=== PATIENT | female | born 1995 | race Caucasian/White ===

== ENCOUNTER 2017-07-26 01:13 | Outpatient (CLI) | payer MEDICAID ==
[2017-07-26 01:59] LABS: APPEARANCE,URINE CLEAR; BILIRUBIN,URINE NEGATIVE (NEGATIVE); GLUCOSE, URINE NEGATIVE (NEGATIVE); KETONES,URINE NEGATIVE (NEGATIVE); LEUKOCYTE ESTERASE,URINE TRACE (NEGATIVE); NITRITE,URINE NEGATIVE (NEGATIVE); PROTEIN,URINE NEGATIVE (NEGATIVE); URINE SPECIFIC GRAVITY 1.009; UROBILINOGEN,URINE NEGATIVE mg/dL (<2.0)
--- NOTE | 2017-07-26 02:27 | Non Stress Test Report ---
Non Stress Test Datetime Report Generated by CPN: 07/26/2017 02:27 DEMOGRAPHIC EGA NST: 40.2 INDICATION Indication for Study: Ordered by Provider; Other Indication for Study (NST) Other: LC URINE RESULTS Urine Protein, NST: Negative Urine Ketones - NST: Negative Urine Glucose - NST: Negative Urine Blood - NST: Negative MONITORING Monitor Explained: Monitor Explained; Test Explained; Patient Verbalized Understanding Time on Monitor: 07/26/2017 01:32 Time off Monitor: 07/26/2017 02:10 NST Duration: 38 NST INTERVENTIONS NST Interventions: Reposition Patient Physician Notified NST: Dr Anderson-Juan BABY A: [id number] BABY A Movement : Present Contraction Frequency : 5-9 FHR Baseline : 140 Accelerations : 15X15 Decelerations : None Variability : Moderate 6-25bpm NST Review: Meets Criteria for Reactive NST NST Review and Verified By : Jazmin Vazquez RN Results: Reactive NST REPORT Report Trigger: Send Report
[2017-07-26 02:58] LABS: URINE BARBITURATES SCREEN NEGATIVE; URINE METHADONE SCREEN NEGATIVE; URINE OPIATES LOW NEGATIVE; URINE PHENCYCLIDINE SCREEN NEGATIVE
== END 2017-07-26 02:17 | disposition home or self-care (01) ==
LOC: LC 01:13
PROVIDERS: ATTEND Obstetrics & Gynecology
PROC: 4A1HXCZ Monitoring of Products of Conception, Cardiac Rate, External Approach (ICD-10-PCS; principal; 2017-07-26)
DX: O47.1 False labor at or after 37 completed weeks of gestation (principal); Z3A.40 40 weeks gestation of pregnancy
CPT/HCPCS: 59025; 80307; 81005

== ENCOUNTER 2017-07-27 23:18 | Outpatient (CLI) | payer MEDICAID ==
[2017-07-27 23:53] LABS: APPEARANCE,URINE CLEAR; BILIRUBIN,URINE NEGATIVE (NEGATIVE); GLUCOSE, URINE NEGATIVE (NEGATIVE); KETONES,URINE NEGATIVE (NEGATIVE); LEUKOCYTE ESTERASE,URINE NEGATIVE (NEGATIVE); NITRITE,URINE NEGATIVE (NEGATIVE); PROTEIN,URINE NEGATIVE (NEGATIVE); URINE SPECIFIC GRAVITY 1.006; UROBILINOGEN,URINE NEGATIVE mg/dL (<2.0)
[2017-07-28 00:22] LABS: URINE BARBITURATES SCREEN NEGATIVE; URINE METHADONE SCREEN NEGATIVE; URINE OPIATES LOW NEGATIVE; URINE PHENCYCLIDINE SCREEN NEGATIVE
[2017-07-28] MEDS ORDERED: HYDROXYZINE PAMOATE 50 MG CAPSULE PO ONE (01:28)
[2017-07-28] MEDS ORDERED: HYDROXYZINE PAMOATE 50 MG CAPSULE ONE (01:30)
--- NOTE | 2017-07-28 01:51 | Non Stress Test Report ---
Non Stress Test Datetime Report Generated by CPN: 07/28/2017 01:51 DEMOGRAPHIC EGA NST: 40.3 INDICATION Indication for Study: Ordered by Provider VITAL SIGNS Temperature - NST: 98.2 Pulse - NST: 80 RESP - NST: 15 NBPSYS NST: 119 NBPDIA NST: 59 MONITORING Monitor Explained: Monitor Explained; Test Explained; Patient Verbalized Understanding Time on Monitor: 07/27/2017 23:43 Time off Monitor: 07/28/2017 00:17 NST Duration: 34 NST INTERVENTIONS NST Interventions: PO Hydration Physician Notified NST: Dr Alejo BABY A: [id number] BABY A Movement : Present Contraction Frequency : none FHR Baseline : 130 Accelerations : 15X15 Decelerations : None Variability : Moderate 6-25bpm NST Review: Meets Criteria for Reactive NST NST Review and Verified By : Laurel Scott RN NST Results: Reactive NST REPORT Report Trigger: Send Report
== END 2017-07-28 01:40 | disposition home or self-care (01) ==
LOC: LC 23:18
PROVIDERS: ATTEND Student in an Organized Health Care Education/Training Program
DX: O47.1 False labor at or after 37 completed weeks of gestation (principal); Z3A.40 40 weeks gestation of pregnancy
CPT/HCPCS: 59025; 81005; 80307; J3490

== ENCOUNTER 2017-07-28 10:21 | Outpatient (CLI) | payer MEDICAID ==
[2017-07-28 11:07] LABS: APPEARANCE,URINE SLIGHTLY-CLOUDY; BILIRUBIN,URINE NEGATIVE (NEGATIVE); GLUCOSE, URINE NEGATIVE (NEGATIVE); KETONES,URINE TRACE mg/dL (NEGATIVE); LEUKOCYTE ESTERASE,URINE TRACE (NEGATIVE); NITRITE,URINE NEGATIVE (NEGATIVE); PROTEIN,URINE NEGATIVE (NEGATIVE); URINE SPECIFIC GRAVITY 1.014; UROBILINOGEN,URINE NEGATIVE mg/dL (<2.0)
[2017-07-28 11:27] LABS: URINE BARBITURATES SCREEN NEGATIVE; URINE METHADONE SCREEN NEGATIVE; URINE OPIATES LOW NEGATIVE; URINE PHENCYCLIDINE SCREEN NEGATIVE
[2017-07-28] MEDS ORDERED: HYDROXYZINE PAMOATE 50 MG CAPSULE ONE (11:35)
[2017-07-28] MEDS ORDERED: ACETAMINOPHEN 325 MG TABLET ONE (11:35)
[2017-07-28] MEDS ORDERED: PROMETHAZINE HCL INJ 25 MG/1 ML VIAL IV ONE (21:06)
[2017-07-28] MEDS ORDERED: NALBUPHINE HCL INJ 10 MG/1 ML AMPULE INJ ONE (21:08)
== END 2017-07-28 11:45 | disposition home or self-care (01) ==
LOC: LC 10:21
PROVIDERS: ATTEND Obstetrics & Gynecology
DX: O47.1 False labor at or after 37 completed weeks of gestation (principal); Z3A.40 40 weeks gestation of pregnancy
CPT/HCPCS: 81005; 80307; J3490 ×2

== ENCOUNTER 2017-07-28 18:15 | Inpatient (IN) | payer MEDICAID ==
[2017-07-28] MEDS ORDERED: PENICILLIN G POTASSIUM 5,000,000 UNIT in DEXTROSE 5%-WATER 100 ML IV ONE (20:04)
[2017-07-28] MEDS ORDERED: RINGERS SOLUTION,LACTATED 1,000 ML IV ONE (20:04)
[2017-07-28 20:45] LABS: ABSOLUTE BASOPHILS # (AUTO) 0.1 10^3/uL (0.0-0.2); ABSOLUTE LYMPHOCYTES (AUTO) 1.9 10^3/uL (0.5-4.7); ABSOLUTE MONOCYTES (AUTO) 0.9 10^3/uL (0.1-1.4); ABSOLUTE NEUT (AUTO) 11.7 10^3/uL (1.7-8.2); BASOPHILS % (AUTO) 0.6 % (0-2); EOSINOPHILS % (AUTO) 0.1 % (0-6); HEMATOCRIT 38.2 % (36.0-47.0); HEMOGLOBIN 12.8 g/dL (12.0-15.5); HGB HCT DIFFERENCE 0.2; LYMPHOCYTES % (AUTO) 12.8 % (13-45); MEAN CORPUSCULAR HEMOGLOBIN 26.3 pg (27.0-33.4); MEAN CORPUSCULAR HGB CONC 33.5 g/dL (32.0-36.0); MEAN CORPUSCULAR VOLUME 78 fl (80-97); MONOCYTES % (AUTO) 6.3 % (3-13); RED BLOOD COUNT 4.88 10^6/uL (3.72-5.28); RED CELL DISTRIBUTION WIDTH 15.5 % (11.5-14.0); SEGMENTED NEUTROPHILS % (AUTO) 80.2 % (42-78); WHITE BLOOD COUNT 14.6 10^3/uL (4.0-10.5)
[2017-07-28] MEDS ORDERED: PROMETHAZINE HCL INJ 25 MG/1 ML VIAL ONE (21:09)
[2017-07-28] MEDS ORDERED: NALBUPHINE HCL INJ 10 MG/1 ML AMPULE ONE (21:10)
[2017-07-29] MEDS ORDERED: PENICILLIN G-K 5 MILLION UNIT VIAL ONE ×3 (01:18→09:13)
[2017-07-29] MEDS ORDERED: EPHEDRINE SULFATE INJ 50 MG/1 ML AMPULE ONE (02:11)
[2017-07-29] MEDS ORDERED: FENTANYL/BUPIVACAINE/NS/PF 200 MCG/100 ML RTUINJ EPI ONE (02:12)
[2017-07-29] MEDS ORDERED: BUPIVACAINE HCL 0.25 % INJ/PF (2.5 MG/1 ML) 30 ML VIAL ONE (02:12)
[2017-07-29] MEDS ORDERED: OXYTOCIN/NORMAL SALINE 20 UNIT/1,000 ML RTUINJ ONE (02:13)
[2017-07-29] MEDS ORDERED: LIDOCAINE 1% INJ-PF (10 MG/ML) 30 ML SDV ONE (02:13)
[2017-07-29] MEDS ORDERED: MISOPROSTOL 0.2 MG TABLET ONE (02:13)
[2017-07-29] MEDS ORDERED: DEXTROSE 5%-LACTATED RINGERS 1,000 ML IV PRN (03:53)
[2017-07-29] MEDS: PENICILLIN G POTASSIUM 2,500,000 UNIT in DEXTROSE 5%-WATER 50 ML IV SCH ×2 (05:36→09:18)
[2017-07-29] MEDS ORDERED: DIPH/PERTUSS(ACELL)/TETANUS VAC/PF 0.5 ML SYR (>=10YO) IM PRN (13:22)
[2017-07-29] MEDS ORDERED: MEASLES,MUMPS&RUBELLA VACC/PF 0.5 ML VIAL SUBCUT PRN (13:22)
[2017-07-29] MEDS ORDERED: OXYTOCIN/NORMAL SALINE 20 UNIT/1,000 ML RTUINJ IV PRN (13:22)
[2017-07-29] MEDS ORDERED: ZOLPIDEM TARTRATE 5 MG TABLET PO PRN (13:22)
[2017-07-29] MEDS ORDERED: DIBUCAINE 1% OINTMENT 28 GM TP PRN (13:22)
[2017-07-29] MEDS ORDERED: BENZOCAINE/MENTHOL AEROSOL SPRAY 56 ML TOP PRN (13:22)
--- NOTE | 2017-07-29 13:41 | Delivery Summary ---
Del Sum A-C Datetime Report Generated by CPN: 07/29/2017 13:41 DELIVERY PERSONNEL DELIVERY PERSONNEL: [id number] Delivery Doctor:: Magaly Ross CNM Nurse Hot Saw Helper Certified:: Magaly Ross CNM Labor and Delivery Nurse:: Valentina Gardner RN Labor and Delivery Nurse:: MILLER Rocha Nursery Nurse:: Will Case/JT: Khushboo Merrill, ST MATERNAL INFORMATION Delivery Anesthesia: Local; Epidural Medications After Delivery: Pitocin Bolus-Please Comment Meds After Delivery Comment: Pitocin 20 units in 1000 ml NS open for bolus Estimated Blood Loss (ml): 250 Maternal Complications: None Provider Comments: SVDVF over 2*perineal lac and 1* periurethral lacs, delivered through nuchal cord, infant vigorous after stimulation. Cord clamped x 2 cut per FOB, cord blood collected. Placenta instact, spont via sawyer. Lacerations repaired, skin to skin with mother. Apgars 7,9. EBL 250. Mother and stable. LABOR SUMMARY EDC: 07/24/2017 00:00 No. Babies in Womb: 1 Attempted: No Labor Anesthesia: Epidural LABOR INFORMATION Reason for Induction: Not Applicable Onset of Labor: 07/29/2017 01:16 Complete Dilatation: 07/29/2017 10:48 Oxytocin: Augmentation Group B Beta Strep: Positive Antibiotics # of Doses: 3 Antibiotics Time of Last Dose: 918 Name of Antibiotic Given: PCN Steroids Given: None Reason Steroids Not Administered: Not Applicable MEMBRANES Membranes Rupture Method: Spontaneous Rupture of Membranes: 07/29/2017 07:45 Length of Rupture (hr): 3.38 Amniotic Fluid Color: Clear Amniotic Fluid Amount: Scant Amniotic Fluid Odor: Normal STAGES OF LABOR Stage 1 hr: 9 Stage 1 min: 32 Stage 2 hr: 0 Stage 2 min: 20 Stage 3 hr: 0 Stage 3 min: 9 Total Time in Labor hr: 10 Total Time in Labor min: 1 VAGINAL DELIVERY Laceration #1: Perineal Laceration Extension #1: Second Degree Laceration #2: Periurethral Laceration Extension #2: First Degree Laceration Repair: Yes Laceration Repair Note: repaired with chromic suture, lidocaine and epidrual Sponge Count Correct: N/A CSECTION DELIVERY Primary Indication: N/A Secondary Indication: N/A CSection Incidence: N/A Labor: N/A Elective: N/A CSection Incision: N/A BABY A INFORMATION Infant Delivery Date/Time: 07/29/2017 11:08 Method of Delivery: Vaginal Born in Route : No : N/A Forceps: N/A Vacuum Extraction: N/A Shoulder Dystocia : No PRESENTATION/POSITION BABY A Presentation: Cephalic Cephalic Presentation: Vertex Vertex Position: Right Occipital Anterior Breech Presentation: N/A PLACENTA INFORMATION BABY A Placenta Delivery Time : 07/29/2017 11:17 Placenta Method of Delivery: Spontaneous Placenta Status: Delivered SCORES BABY A Heart Rate 1 min: >100 bpm Resp Effort 1 min: Slow, Irregular Reflex Irritability 1 min: Cough or Sneeze or Pulls Away Muscle Tone 1 min: Active Motion Color 1 min: Blue/Pale Resuscitation Effort 1 min: Tactile Stimulation SCORE 1 MIN: 7 Heart Rate 5 min: >100 bpm Resp Effort 5 min: Good Cry Reflex Irritability 5 min: Cough or Sneeze or Pulls Away Muscle Tone 5 min: Active Motion Color 5 min: Body [place], Extremities Blue Resuscitation Effort 5 min: N/A SCORE 5 MIN: 9 Resuscitation Effort 10 min: N/A INFORMATION BABY A Gestational Age at Delivery: 40.5 Gestational Status: Full Term- 39- 40.6 Weeks Infant Outcome : Liveborn Condition : Stable Infant Sex: Female IDENTIFICATION BABY A Infant Verification Date/Time: 07/29/2017 11:35 ID Band Number: [id number] Mother's Name Verified: Yes RN Verifying Infant: CEulalia Kendra, RN/ Ovi Roberts RN WEIGHT/LENGTH BABY A Infant Birthweight (gm): 3560 Weight (lb): 7 Weight (oz): 14 Length (in): 20.50 Length (cm): 52.07 CORD INFORMATION BABY A No. Cord Vessels: 3 Nuchal Cord : Around Neck x1, Loose Cord Blood Taken: Yes-For Eval (Mom's Blood Type - or O+) Infant Suction: None ASSESSMENT BABY A Physical Findings at Delivery: Within Normal Limits Skin to Skin: Yes Transferred To: Remains with Mother BABY B INFORMATION : N/A SIGNATURES Assignment: Ethel Roberts MD Signature: with User ID: [email or web address] : with User ID: [email or web address]
--- NOTE | 2017-07-29 13:47 | Admission Physical ---
Datetime Report Generated by CPN: 07/29/2017 13:47 CURRENT ADMISSION Chief Complaint: Uterine Contractions Indication for Induction: Not Applicable Indication for Induction: Term, Intrauterine ; Active Labor; Intact Membranes Admit Plan: Admit to Unit ALLERGIES Medication Allergies: No Medication Allergies: No Known Allergies (07/28/2017) Medication Allergies: No Known Allergies (07/12/2017) Latex: No Latex Allergies Food Allergies: no Environmental Allergies: no OBSTETRICAL HISTORY EDC: 07/24/2017 00:00 : 1 Para: 0 Term: 0 : 0 SAB: 0 IAB: 0 Ectopic: 0 Livin Cesareans: 0 VBACs: 0 Multiple Births: 0 Gestational Diabetes: No Rh Sensitization: No Incompetent Cervix: No WILLIAM: No Infertility: No ART Treatment: No Uterine Anomaly: No IUGR: No Hx Previous C/S: No Macrosomia: No Hx Loss/Stillborn: No PIH: No Hx : No Placenta Previa/Abruption: No Depression/PP Depression: No PTL/PROM: No Post Hemorrhage: No Current Procedures: Ultrasound Obstetrical History Comments: G1: current SEE RECORDS Alcohol: No Marijuana : No Cocaine: No Other Illicit Drugs: No Cigarettes: Former Smoker. 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 Surgery: No Heart Disease: No Hosp/Surgery: Yes Autoimmune Disorder: No Anesthetic Complications: No Kidney Disease: Yes Abnormal Pap Smear: No Neuro/Epilepsy: No Psychiatric Disorders: No Other Medical Diseases: No Hepatitis/Liver Disease: No Significant Family History: No Varicosities/Phlebitis: No Trauma/Violence : No Thyroid Dysfunction: No Medical History Comments: uti before /surgery left ankle/ INFECTIOUS HISTORY Gonorrhea: No Genital Herpes: No Chlamydia: No Tuberculosis: No Syphilis: No Hepatitis: No HIV/AIDS Exposure: No Rash or Viral Illness: No HPV: No PHYSICAL EXAM General: Normal HEENT: Normal Neurologic: Normal Thyroid: Normal Heart: Normal Lungs: Normal Breast: Deferred Back: Normal Abdomen: Normal Genitourinary Exam: Normal Extremities: Normal DTRs: Normal Pelvic Type: Adequate Vital Signs: Reviewed VAGINAL EXAM Dilatation: 4 Effacement: 80 Station: -2 MEMBRANES Membranes: Ruptured FETUS A EGA: 40.4 Monitoring: External US FHR- Baseline: 130 Variability: Moderate 6-25bpm Accelerations: 15X15 Decelerations: None Presentation: Vertex Admit Comment: efw is 8-9 lbs PLANS FOR LABOR AND DELIVERY Labor and Delivery: None Pain Management: Natural Feeding Preference: Formula Benefit of Breast Feed Discussed: Yes Circumcision: N/A INFORMED CONSENT Signature: with User ID: [email or web address]
[2017-07-29] MEDS: IBUPROFEN 800 MG TABLET PO SCH ×2 (14:17→21:49)
[2017-07-29] MEDS: DOCUSATE SODIUM 100 MG CAPSULE PO SCH (18:45)
[2017-07-29] MEDS: FERROUS SULFATE 325 MG TABLET PO SCH (18:45)
[2017-07-30] MEDS: IBUPROFEN 800 MG TABLET PO SCH ×3 (06:10→21:21)
[2017-07-30 07:21] LABS: HEMATOCRIT 34.7 % (36.0-47.0); HEMOGLOBIN 11.4 g/dL (12.0-15.5); HGB HCT DIFFERENCE -0.5; MEAN CORPUSCULAR HEMOGLOBIN 26.1 pg (27.0-33.4); MEAN CORPUSCULAR HGB CONC 32.8 g/dL (32.0-36.0); MEAN CORPUSCULAR VOLUME 79 fl (80-97); RED BLOOD COUNT 4.36 10^6/uL (3.72-5.28); RED CELL DISTRIBUTION WIDTH 15.9 % (11.5-14.0); WHITE BLOOD COUNT 14.6 10^3/uL (4.0-10.5)
[2017-07-30] MEDS ORDERED: INFLUENZA ADLT QUAD (36MOS+) 2017-18 VAC 0.5 ML SYR IM PRN (09:13)
[2017-07-30] MEDS: FERROUS SULFATE 325 MG TABLET PO SCH ×2 (09:17→17:46)
[2017-07-30] MEDS: SENNOSIDES/DOCUSATE 8.6-50 MG 1 EACH TABLET PO SCH (09:18)
[2017-07-30] MEDS: DOCUSATE SODIUM 100 MG CAPSULE PO SCH ×2 (09:18→17:46)
[2017-07-30] MEDS: PRENATAL VITAMIN W DHA CAPSULE PO SCH (09:18)
--- NOTE | 2017-07-30 09:47 | PDOC PROGRESS REPORT ---
Subjective-OB Subjective: Post Delivery Day: 21 year old. Denies any needs at this time Doing well, no c/o, bottle feeding, voiding, eating well, mod bleeding Physical Exam (OB) Vital Signs: Temp Pulse Resp BP Pulse Ox 97.9 F 77 17 124/71 99 07/30/17 08:08 07/30/17 08:08 07/30/17 08:08 07/30/17 08:08 07/30/17 08:08 Intake & Output 07/29/17 07/30/17 07/31/17 06:59 06:59 06:59 Weight 105.85 kg - Lochia Lochia Amount: Small 10-25 ml Lochia Color: Rubra/Red - Abdomen Description: Soft Hernia Present: No Fundal Description: Firm, Midline Fundal Height: u/u - u/2 Objective-Diagnostic Laboratory: 07/30/17 07:01 07/30/17 07:01 WBC 14.6 H RBC 4.36 Hgb 11.4 L Hct 34.7 L MCV 79 L MCH 26.1 L MCHC 32.8 RDW 15.9 H Plt Count 190 Assessment and Plan(PN) - Assessment and Plan (1) Vaginal delivery Is this a current diagnosis for this admission?: Yes - Time Spent with Patient Time with patient: Less than 15 minutes Medications reviewed and adjusted accordingly: Yes - Disposition Anticipated Discharge: Home Within: within 24 hours
[2017-07-31] MEDS: IBUPROFEN 800 MG TABLET PO SCH (05:50)
[2017-07-31 08:21] VITALS: BP 130/73
--- NOTE | 2017-07-31 08:34 | PDOC PROGRESS REPORT ---
Subjective-OB Subjective: Post Delivery Day: 21 year old. Denies any needs at this time Doing well, ready to go home, voiding, bottle feeding, voiding, scant bleeding Physical Exam (OB) Vital Signs: Temp Pulse Resp BP Pulse Ox 98.4 F 92 16 130/73 H 99 07/31/17 08:15 07/31/17 08:15 07/31/17 08:15 07/31/17 07:52 07/31/17 08:15 Intake & Output 07/30/17 07/31/17 08/01/17 06:59 06:59 06:59 Intake Total 250 Balance 250 - Lochia Lochia Amount: Scant < 10 ml Lochia Color: Rubra/Red - Abdomen Description: Soft Hernia Present: No Fundal Description: Firm, Midline Fundal Height: u/u - u/2 Objective-Diagnostic Laboratory: 07/30/17 07:01 Assessment and Plan(PN) - Assessment and Plan (1) Vaginal delivery Is this a current diagnosis for this admission?: Yes - Time Spent with Patient Time with patient: Less than 15 minutes Medications reviewed and adjusted accordingly: Yes - Disposition Anticipated Discharge: Home Within: Other - home today
--- NOTE | 2017-07-31 08:41 | PDOC DISCHARGE SUMMARY ---
Final Diagnosis Discharge Date: 07/31/17 - Final Diagnosis (1) Vaginal delivery Is this a current diagnosis for this admission?: Yes Discharge Data - Discharge Medication Home Medications: No122/Iron/Folic Acid [ Multi Tablet] 1 each PO DAILY 07/12/17 Ibuprofen [Motrin 800 mg Tablet] 800 mg PO Q8 #60 tablet 07/29/17 Reason(s) for Admission: Onset of Labor, Group B Strep Positive Procedures: NST, Ultrasound Intrapartum Procedure(s): Spontaneous Vaginal Delivery Complication(s): Laceration-Perineal, Laceration-Periurethral Laceration-Degree: 2nd - [place] Data Baby 1 Female at 1 minute: 7 at 5 minutes: 9 Weight: 3.572 kg Home with Mother: Yes Complications: No - Diagnosis Test Laboratory: Temp Pulse Resp BP Pulse Ox 98.4 F 92 16 130/73 H 99 07/31/17 08:15 07/31/17 08:15 07/31/17 08:15 07/31/17 07:52 07/31/17 08:15 07/28/17 07/30/17 20:35 07:01 RBC 4.88 4.36 Hgb 12.8 11.4 L Hct 38.2 34.7 L - Discharge information/Instructions Discharge Activity: Activity As Tolerated, Pelvic Rest Discharge Diet: As Tolerated, Regular Disposition: HOME, SELF-CARE Follow up with: [facility] in: 4, Weeks
[2017-07-31] MEDS: PRENATAL VITAMIN W DHA CAPSULE PO SCH (09:47)
[2017-07-31] MEDS: SENNOSIDES/DOCUSATE 8.6-50 MG 1 EACH TABLET PO SCH (09:47)
[2017-07-31] MEDS: DOCUSATE SODIUM 100 MG CAPSULE PO SCH (09:47)
[2017-07-31] MEDS: FERROUS SULFATE 325 MG TABLET PO SCH (09:47)
== END 2017-07-31 12:20 | disposition home or self-care (01) | DRG 775 ==
LOC: LC 18:15 → LR 19:56 → 2S 07-29 13:46
PROVIDERS: ADMIT Obstetrics & Gynecology; ATTEND Obstetrics & Gynecology
PROC: 10E0XZZ Delivery of Products of Conception, External Approach (ICD-10-PCS; principal; 2017-07-29)
PROC: 0KQM0ZZ Repair Perineum Muscle, Open Approach (ICD-10-PCS; 2017-07-29)
PROC: 0UQMXZZ Repair Vulva, External Approach (ICD-10-PCS; 2017-07-29)
PROC: 3E0234Z Introduction of Serum, Toxoid and Vaccine into Muscle, Percutaneous Approach (ICD-10-PCS; 2017-07-31)
DX: O99.824 Streptococcus B carrier state complicating childbirth (principal); O69.81X0 Labor and delivery complicated by cord around neck, without compression, not applicable or unspecified; O70.1 Second degree perineal laceration during delivery; O71.82 Other specified trauma to perineum and vulva; E66.8 Other obesity; Z3A.40 40 weeks gestation of pregnancy; Z37.0 Single live birth; Z23 Encounter for immunization; Z68.34 Body mass index [BMI] 34.0-34.9, adult
CPT/HCPCS: 36415; 85025; 85027; 86592; 86850; 86900; 86901; 90686; J2300; J2540; J2550; J2590; J3490

== ENCOUNTER → 2018-11-02 | Outpatient (CLI) | payer MEDICAID ==
--- NOTE | 2018-11-02 13:54 | RADIOLOGY REPORT (SQ) ---
EXAM DESCRIPTION: U/S [id number] TRNABD 1GES W/ODOP COMPLETED DATE/TIME: 11/02/2018 1:39 pm REASON FOR STUDY: ENCTR FOR SUPERVISION OF OTHER NORMAL 1ST TRIMESTER (Z34.81) Z34.81 ENC OUNTER FOR SUPRVSN OF NORMAL , FIRST TRIM COMPARISON: None. TECHNIQUE: Endovaginal static and realtime grayscale images acquired of the pelvis. Additional yon cted spectral and color Doppler images recorded. All images stored on PACs. bHCG: None available CLINICAL DATES: last menstrual period 08/28/2018 (estimated gestational age based on menses 9 weeks 3 days) LIMITATIONS: None. FINDINGS: FETUS: Single Living intrauterine . ULTRASOUND EGA: 6 weeks 5 days ULTRASOUND DELMA: 06/23/2019 EFW: Not applicable less than 20 weeks. CRL: 0.8 cm FHR: 135 beats per minute. SURVEY: Too early to assess. AMNIOTIC FLUID: Adequate amount. PLACENTA: Not yet developed due to early gestation. SUBCHORIONIC BLEED: Yes SIZE OF BLEED: Small subchorionic hemorrhage 1.3 x 0.4 x 0.5 cm UTERUS: No masses. No anomalies. Uterus is 9 x 6 x 6 cm in size CERVICAL LENGTH: 2.2 cm Closed. RIGHT ADNEXA: Normal ovary with normal vascular flow. Right ovary 2.7 x 3.1 x 2.3 cm in size No adnexal free fluid. No adnexal masses. LEFT ADNEXA: Normal ovary with normal vascular flow. Left ovary 3.6 x 1.9 x 1.6 cm in size No adnexal free fluid. No adnexal masses. FREE FLUID: None. OTHER: No other significant finding. IMPRESSION: LIVING INTRAUTERINE . EGA 6 weeks 5 days, embryo cardiac activity 135 beats per minute. Small subchorionic hemorrhage Trimester of : First - 0 to 13 weeks. TECHNICAL DOCUMENTATION: JOB ID: [id number] [employer]- All Rights Reserved rev Reading location - IP/workstation name: [email or web address]
== END ==
LOC: RAD 12:45
PROVIDERS: ATTEND Midwife
DX: Z34.81 Encounter for supervision of other normal pregnancy, first trimester (principal)
CPT/HCPCS: 76801

== ENCOUNTER 2019-06-29 07:45 | Inpatient (IN) | payer BC, MEDICAID ==
[2019-06-29] MEDS ORDERED: PENICILLIN G-K 5 MILLION UNIT VIAL IV ONE (08:00)
[2019-06-29] MEDS ORDERED: PENICILLIN G-K 5 MILLION UNIT VIAL ONE ×4 (08:07→20:47)
[2019-06-29] MEDS ORDERED: OXYTOCIN/NORMAL SALINE 20 UNIT/1,000 ML RTUINJ IV PRN ×2 (08:16→22:04)
[2019-06-29] MEDS ORDERED: RINGERS SOLUTION,LACTATED 300 ML IV ONE (08:16)
--- NOTE | 2019-06-29 08:36 | Admission Physical ---
Datetime Report Generated by CPN: 06/29/2019 08:35 CURRENT ADMISSION Chief Complaint: Uterine Contractions Indication for Induction: Post Dates Admit Impression : Postterm, Intrauterine ; Active Labor; Intact Membranes Admit Impression- Other: +GBS Admit Plan: Admit to Unit; Initiate Labor Induction Protocol Admit Plan- Other: PCN prophylaxis ALLERGIES Medication Allergies: No Medication Allergies: No Known Allergies (06/29/2019) OBSTETRICAL HISTORY EDC: 06/20/2019 00:00 : 2 Para: 1 Term: 1 Livin Gestational Diabetes: No Rh Sensitization: No Incompetent Cervix: No WILLIAM: No Infertility: No ART Treatment: No Uterine Anomaly: No IUGR: No Hx Previous C/S: No Macrosomia: No Hx Loss/Stillborn: No PIH: No Hx : No Placenta Previa/Abruption: No Depression/PP Depression: No PTL/PROM: No Post Hemorrhage: No Current Procedures: Ultrasound; NST Obstetrical History Comments: G1- 2016 42 weeks G2- current SEE RECORDS Alcohol: No Marijuana : No Cocaine: No Other Illicit Drugs: No Cigarettes: Former Smoker. [id number] MEDICAL HISTORY Diabetes: No Hypertension: No Heart Disease: No Hosp/Surgery: Yes Autoimmune Disorder: No Anesthetic Complications: No Kidney Disease: No Abnormal Pap Smear: No Neuro/Epilepsy: No Psychiatric Disorders: No Other Medical Diseases: No Hepatitis/Liver Disease: No Significant Family History: No Varicosities/Phlebitis: No Trauma/Violence : No Thyroid Dysfunction: No Medical History Comments: Ankle surgery (2009), obesity INFECTIOUS HISTORY Gonorrhea: No Genital Herpes: No Chlamydia: No Tuberculosis: No Syphilis: No Hepatitis: No HIV/AIDS Exposure: No Rash or Viral Illness: No HPV: No PHYSICAL EXAM General: Normal HEENT: Normal Neurologic: Normal Thyroid: Normal Heart: Normal Lungs: Normal Breast: Normal Back: Normal Abdomen: Normal Genitourinary Exam: Normal Extremities: Normal DTRs: Normal Pelvic Type: Adequate Vital Signs: Reviewed VAGINAL EXAM Dilatation: 5 Effacement: 70 Station: -3 Contraction Comments: q5 MEMBRANES Membranes: Intact FETUS A EGA: 41.2 Monitoring: External US FHR- Baseline: 130 Variability: Moderate 6-25bpm Accelerations: 15X15 Decelerations: None FHR Category: Category I Admit Comment: here for IOL at 41.2 wks, started cherry at 0300 this morning, denies ROM. VE /-3, vtx. GBS+, will start PCN prophylaxis. Pt is considering an epidural. Attending MD is Dr Piña today. Will plan AROM once 4 hours PCN infused. PLANS FOR LABOR AND DELIVERY Labor and Delivery: None Pain Management: Epidural Feeding Preference: Formula Benefit of Breast Feed Discussed: Yes Circumcision: Yes INFORMED CONSENT Assignment: Paige Piña MD Signature: with User ID: Lory : with User ID: Lory
[2019-06-29 08:48] LABS: ABSOLUTE EOSINOPHILS # (AUTO) 0.1 10^3/uL (0.0-0.6); ABSOLUTE LYMPHOCYTES (AUTO) 2.3 10^3/uL (0.5-4.7); ABSOLUTE MONOCYTES (AUTO) 0.7 10^3/uL (0.1-1.4); BASOPHILS % (AUTO) 0.2 % (0-2); EOSINOPHILS % (AUTO) 0.6 % (0-6); HEMATOCRIT 34.9 % (36.0-47.0); HEMOGLOBIN 11.1 g/dL (12.0-15.5); LYMPHOCYTES % (AUTO) 28.8 % (13-45); MEAN CORPUSCULAR HEMOGLOBIN 23.1 pg (27.0-33.4); MEAN CORPUSCULAR HGB CONC 31.9 g/dL (32.0-36.0); MEAN CORPUSCULAR VOLUME 73 fl (80-97); MONOCYTES % (AUTO) 8.1 % (3-13); PLATELET COUNT 227 10^3/uL (150-450); RED CELL DISTRIBUTION WIDTH 16.7 % (11.5-14.0); SEGMENTED NEUTROPHILS % (AUTO) 62.3 % (42-78); TOTAL CELLS COUNTED % (AUTO) 100 %
[2019-06-29 08:55] LABS: APPEARANCE,URINE CLOUDY; BILIRUBIN,URINE NEGATIVE (NEGATIVE); COLOR,URINE YELLOW; GLUCOSE, URINE NEGATIVE (NEGATIVE); KETONES,URINE NEGATIVE (NEGATIVE); LEUKOCYTE ESTERASE,URINE NEGATIVE (NEGATIVE); NITRITE,URINE NEGATIVE (NEGATIVE); PROTEIN,URINE NEGATIVE (NEGATIVE); URINE SPECIFIC GRAVITY 1.012; UROBILINOGEN,URINE NEGATIVE mg/dL (<2.0)
[2019-06-29] MEDS ORDERED: LIDOCAINE 1% INJ-PF (10 MG/ML) 30 ML SDV ONE (09:00)
[2019-06-29] MEDS ORDERED: OXYTOCIN/NORMAL SALINE 20 UNIT/1,000 ML RTUINJ ONE (09:00)
[2019-06-29] MEDS ORDERED: OXYTOCIN 10 UNIT/ML VIAL ONE (09:00)
[2019-06-29] MEDS ORDERED: MISOPROSTOL 0.2 MG TABLET ONE (09:00)
[2019-06-29 09:18] LABS: URINE AMPHETAMINES SCREEN NEGATIVE; URINE BARBITURATES SCREEN NEGATIVE; URINE BENZODIAZEPINES SCREEN NEGATIVE; URINE COCAINE SCREEN NEGATIVE; URINE MARIJUANA (THC) SCREEN NEGATIVE; URINE METHADONE SCREEN NEGATIVE; URINE PHENCYCLIDINE SCREEN NEGATIVE
[2019-06-29] MEDS: PENICILLIN G POTASSIUM 2,500,000 UNIT in DEXTROSE 5%-WATER 50 ML IV SCH ×3 (12:37→20:53)
[2019-06-29] MEDS: RINGERS SOLUTION,LACTATED 1,000 ML IV PRN ×2 (12:38→16:46)
[2019-06-29] MEDS ORDERED: BUPIVACAINE HCL 0.25 % INJ/PF (2.5 MG/1 ML) 30 ML VIAL ONE (14:59)
[2019-06-29] MEDS ORDERED: EPHEDRINE SULFATE INJ 50 MG/1 ML AMPULE ONE (14:59)
[2019-06-29] MEDS ORDERED: FENTANYL/BUPIVACAINE/NS/PF 300 MCG/150 ML RTUINJ EPI ONE (14:59)
[2019-06-29] MEDS ORDERED: NA PHOS,M-B/NA PHOS,DI-BA (ADULT) 133 ML ENEMA PR PRN (22:04)
[2019-06-29] MEDS ORDERED: GLYCERIN/WITCH HAZEL LEAF 1 EACH MED..WIPE TP PRN (22:04)
[2019-06-29] MEDS ORDERED: ZOLPIDEM TARTRATE 5 MG TABLET PO PRN (22:04)
[2019-06-29] MEDS ORDERED: DIPH/PERTUSS(ACELL)/TETANUS VAC/PF 0.5 ML SYR (>=10YO) IM PRN (22:04)
[2019-06-29] MEDS ORDERED: PROMETHAZINE HCL INJ 25 MG/1 ML VIAL IV PRN (22:04)
[2019-06-29] MEDS ORDERED: DIBUCAINE 1% OINTMENT 56 GM TP PRN (22:04)
[2019-06-29] MEDS ORDERED: MEASLES,MUMPS&RUBELLA VACC/PF 0.5 ML VIAL SUBCUT PRN (22:04)
[2019-06-29] MEDS ORDERED: BENZOCAINE/MENTHOL AEROSOL SPRAY 56 ML TOP PRN (22:04)
[2019-06-29] MEDS ORDERED: ACETAMINOPHEN 650 MG SUPP.RECT PR PRN (22:04)
[2019-06-29] MEDS ORDERED: PROMETHAZINE HCL 25 MG TABLET PO PRN (22:04)
[2019-06-29] MEDS ORDERED: ACETAMINOPHEN WITH CODEINE #3 TABLET PO PRN ×2 (22:04)
[2019-06-29] MEDS ORDERED: PROMETHAZINE HCL 25 MG SUPP.RECT PR PRN (22:04)
[2019-06-29] MEDS ORDERED: PSEUDOEPHEDRINE HCL 30 MG TABLET PO PRN (22:04)
[2019-06-29] MEDS ORDERED: MAGNESIUM HYDROXIDE SUSP 30 ML UDCUP PO PRN (22:04)
[2019-06-29] MEDS ORDERED: DIPHENHYDRAMINE HCL 25 MG CAPSULE PO PRN (22:04)
--- NOTE | 2019-06-29 23:44 | Warning Signs in Babies ---
VOD Warning Signs Datetime Report Generated by N: 06/29/2019 23:44 VOD#608 -Warning Signs in Babies: Viewed with Parent(s)/Family (06/29/2019 05:11:Homero Babin RN)
--- NOTE | 2019-06-30 | Delivery Summary ---
Del Sum A-C Datetime Report Generated by CPN: 06/30/2019 00:00 DELIVERY PERSONNEL DELIVERY PERSONNEL: [id number] Delivery Doctor:: Paige Piña MD Labor and Delivery Nurse:: Homero Babin RN Nursery Nurse:: Mila Mead RNC Refractive Surgeon/INFORMATION SYSTEMS CONSULTANT: Jamilah Natty, ST MATERNAL INFORMATION Delivery Anesthesia: Epidural Medications After Delivery: Pitocin Bolus-Please Comment Meds After Delivery Comment: pitocin 20 units in 1 L NS bolusing per oder Estimated Blood Loss (ml): 200 Delivery QBL: 25 Maternal Complications: None Provider Comments: After delivery of the head a nuchal x1 was noted. Cord was too tight to reduce and baby was delivered through. THe shoulders were briefly delayed but Solo initiated and anterior shoulder quickly delivered. The shoulders and rest of the body followed easily. Terminal meconium noted. Infant orally and nasally suctioned, stimulated and began crying vigorously. Cord clamping delayed 30 seconds. After cord clamped and cut, infant placed on Mothers chest. BOth stable . LABOR SUMMARY EDC: 06/20/2019 00:00 No. Babies in Womb: 1 Attempted: No Labor Anesthesia: Epidural LABOR INFORMATION Reason for Induction: Not Applicable Onset of Labor: 06/29/2019 03:00 Complete Dilatation: 06/29/2019 21:25 Oxytocin: N/A Group B Beta Strep: Positive Antibiotics # of Doses: 4 Antibiotics Time of Last Dose: 2052 Name of Antibiotic Given: PCN Steroids Given: None Reason Steroids Not Administered: Not Applicable MEMBRANES Membranes Rupture Method: Artificial Rupture of Membranes: 06/29/2019 13:23 Length of Rupture (hr): 8.32 Amniotic Fluid Color: Clear Amniotic Fluid Amount: Scant Amniotic Fluid Odor: None STAGES OF LABOR Stage 1 hr: 18 Stage 1 min: 25 Stage 2 hr: 0 Stage 2 min: 17 Stage 3 hr: 0 Stage 3 min: 6 Total Time in Labor hr: 18 Total Time in Labor min: 48 VAGINAL DELIVERY Episiotomy: None Laceration #1: Perineal Laceration Extension #1: First Degree Other Laceration: Right Labial Laceration Repair: Yes Laceration Repair Note: Repair with 3-0 chromic in running fashion Sponge Count Correct: Yes Sharps Count Correct: Yes CSECTION DELIVERY Primary Indication: N/A Other Primary Indication: NA Secondary Indication: N/A Other Secondary Indication: N/A CSection Urgency: N/A CSection Incidence: N/A Labor: N/A Elective: N/A CSection Incision: N/A BABY A INFORMATION Infant Delivery Date/Time: 06/29/2019 21:42 Method of Delivery: Vaginal Born in Route : No : N/A Forceps: N/A Vacuum Extraction: N/A Shoulder Dystocia : No PRESENTATION/POSITION BABY A Presentation: Cephalic Cephalic Presentation: Vertex Vertex Position: Right Occipital Anterior Breech Presentation: N/A PLACENTA INFORMATION BABY A Placenta Delivery Time : 06/29/2019 21:48 Placenta Method of Delivery: Spontaneous Placenta Status: Delivered SCORES BABY A Heart Rate 1 min: >100 bpm Resp Effort 1 min: Good Cry Reflex Irritability 1 min: Cough or Sneeze or Pulls Away Muscle Tone 1 min: Active Motion Color 1 min: Blue/Pale Resuscitation Effort 1 min: Tactile Stimulation SCORE 1 MIN: 8 Heart Rate 5 min: >100 bpm Resp Effort 5 min: Good Cry Reflex Irritability 5 min: Cough or Sneeze or Pulls Away Muscle Tone 5 min: Active Motion Color 5 min: Body [place], Extremities Blue Resuscitation Effort 5 min: Tactile Stimulation SCORE 5 MIN: 9 INFORMATION BABY A Gestational Age at Delivery: 41.2 Gestational Status: Late Term- 41- 41.6 Weeks Infant Outcome : Liveborn Infant Condition : Stable Sex: Male IDENTIFICATION BABY A Verification Date/Time: 06/29/2019 22:08 ID Band Number: [id number] Mother's Name Verified: Yes Infant RN Verifying Infant: Ricky Babin RN/D. Alyce RNC WEIGHT/LENGTH BABY A Birthweight (gm): 4178 Weight (lb): 9 Infant Weight (oz): 3 Infant Length (in): 21.00 Infant Length (cm): 53.34 CORD INFORMATION BABY A No. Cord Vessels: 3 Nuchal Cord : Around Neck x1, Tight Cord Blood Taken: Yes-For Eval (Mom's Blood Type - or O+) Infant Suction: None; Mouth ASSESSMENT BABY A Infant Complications: Other Complications- Other: terminal meconium Physical Findings at Delivery: Other Physical Findings- Other: see nursery notes Infant Respirations: Appears Normal Skin to Skin: Yes Skin to Skin Time (min): 40 Twisting Frame Changer/ALS Called : No Infant Care By: Mila Mead RNC Transferred To: Remains with Mother BABY B INFORMATION : N/A SIGNATURES Signature: with User ID: Clarisa : with User ID: Clarisa
[2019-06-30] MEDS: IBUPROFEN 800 MG TABLET PO SCH ×4 (05:19→22:01)
[2019-06-30] MEDS: DOCUSATE SODIUM 100 MG CAPSULE PO SCH ×3 (05:20→17:33)
[2019-06-30] MEDS: PRENATAL VITAMIN W DHA CAPSULE PO SCH ×2 (05:20→09:32)
[2019-06-30] MEDS: FERROUS SULFATE 325 MG TABLET PO SCH ×3 (05:20→17:32)
[2019-06-30] MEDS: FAMOTIDINE 20 MG TABLET PO SCH ×3 (05:20→22:01)
[2019-06-30] MEDS ORDERED: INFLUENZA QUAD (6MOS+) 2019-20 VAC 0.5 ML SYR IM ONE (05:28)
[2019-06-30 07:23] LABS: HEMATOCRIT 27.8 % (36.0-47.0); MEAN CORPUSCULAR HEMOGLOBIN 23.4 pg (27.0-33.4); MEAN CORPUSCULAR HGB CONC 31.9 g/dL (32.0-36.0); MEAN CORPUSCULAR VOLUME 73 fl (80-97); PLATELET COUNT 209 10^3/uL (150-450); RED BLOOD COUNT 3.79 10^6/uL (3.72-5.28); RED CELL DISTRIBUTION WIDTH 17.5 % (11.5-14.0)
[2019-06-30 07:24] LABS: HEMOGLOBIN 8.9 g/dL (12.0-15.5); WHITE BLOOD COUNT 16.5 10^3/uL (4.0-10.5)
--- NOTE | 2019-06-30 09:13 | PDOC PROGRESS REPORT ---
Subjective-OB Progress Note for:: 06/30/19 Subjective: No sx fever, light-headed, no dizziness. Physical Exam (OB) Vital Signs: Temp Pulse Resp BP Pulse Ox 98.1 F 96 16 118/53 L 99 06/30/19 08:30 06/30/19 08:30 06/30/19 08:30 06/30/19 08:30 06/30/19 08:30 Intake & Output 06/29/19 06/30/19 07/01/19 06:59 06:59 06:59 Intake Total 517 Balance 517 Weight 112.037 kg - Lochia Lochia Amount: Small 10-25 ml Lochia Color: Rubra/Red - Abdomen Description: Soft Hernia Present: No Bowel Sounds: Normoactive Flatus Presence: Absent Stool: No Fundal Description: Firm, Midline Fundal Height: u/u - u/2 Objective-Diagnostic Laboratory: 06/30/19 06:41 06/29/19 06/30/19 08:15 06:41 WBC 16.5 H D RBC 3.79 Hgb 8.9 L D Hct 27.8 L MCV 73 L MCH 23.4 L MCHC 31.9 L RDW 17.5 H Plt Count 209 Blood Type O POSITIVE Antibody Screen NEGATIVE
[2019-06-30] MEDS: SENNOSIDES/DOCUSATE 8.6-50 MG 1 EACH TABLET PO SCH (09:32)
[2019-07-01] MEDS: PRENATAL VITAMIN W DHA CAPSULE PO SCH ×2 (05:19→10:35)
[2019-07-01] MEDS: IBUPROFEN 800 MG TABLET PO SCH ×2 (05:29→14:29)
[2019-07-01 06:31] LABS: HEMATOCRIT 26.7 % (36.0-47.0); HEMOGLOBIN 8.5 g/dL (12.0-15.5); MEAN CORPUSCULAR HEMOGLOBIN 23.5 pg (27.0-33.4); MEAN CORPUSCULAR HGB CONC 31.9 g/dL (32.0-36.0); MEAN CORPUSCULAR VOLUME 74 fl (80-97); PLATELET COUNT 212 10^3/uL (150-450); RED BLOOD COUNT 3.63 10^6/uL (3.72-5.28); RED CELL DISTRIBUTION WIDTH 17.4 % (11.5-14.0); WHITE BLOOD COUNT 9.2 10^3/uL (4.0-10.5)
--- NOTE | 2019-07-01 08:22 | PDOC PROGRESS REPORT ---
Subjective-OB Progress Note for:: 07/01/19 Subjective: Doing well, no c/o, ready to go home, voiding, scant lochia Physical Exam (OB) Vital Signs: Temp Pulse Resp BP Pulse Ox 98.2 F 92 16 137/80 H 97 06/30/19 19:21 06/30/19 19:21 06/30/19 19:21 06/30/19 19:21 06/30/19 19:21 Intake & Output 06/30/19 07/01/19 07/02/19 06:59 06:59 06:59 Intake Total 517 Balance 517 Weight 112.037 kg - PIH/Pre-Eclampsia Headache: Absent Epigastric Pain: No Visual Changes: No - Lochia Lochia Amount: Scant < 10 ml Lochia Color: Rubra/Red - Abdomen Description: Soft, Round Hernia Present: No Fundal Description: Firm, Midline Fundal Height: u/u - u/2 Objective-Diagnostic Laboratory: 07/01/19 05:13 07/01/19 05:13 WBC 9.2 RBC 3.63 L Hgb 8.5 L Hct 26.7 L MCV 74 L MCH 23.5 L MCHC 31.9 L RDW 17.4 H Plt Count 212 Assessment and Plan(PN) - Assessment and Plan (1) Obesity Qualifiers: Obesity type: due to excess calories Is this a current diagnosis for this admission?: Yes (2) Positive GBS test Is this a current diagnosis for this admission?: Yes (3) Vaginal delivery Is this a current diagnosis for this admission?: Yes - Time Spent with Patient Time with patient: Less than 15 minutes Medications reviewed and adjusted accordingly: Yes - Disposition Anticipated Discharge: Home Within: within 24 hours
--- NOTE | 2019-07-01 08:26 | PDOC DISCHARGE SUMMARY ---
Impression - Admit/DC Date/PCP Admission Date/Primary Care Provider: 06/29/19 07:45 ROSA ALAS CNM Discharge Date: 07/01/19 - Discharge Diagnosis (1) Obesity Is this a current diagnosis for this admission?: Yes (2) Positive GBS test Is this a current diagnosis for this admission?: Yes (3) Vaginal delivery Is this a current diagnosis for this admission?: Yes - Additional Information Resuscitation Status: Full Code Discharge Diet: As Tolerated, Regular Discharge Activity: Activity As Tolerated, Pelvic Rest Referrals: [facility] [Provider Group] (rtc 4 weeks) Home Medications: No122/Iron/Folic Acid [ Multi Tablet] 1 each PO DAILY 07/12/17 HPI Gestational Age: 41.2 Reason(s) for Admission: Onset of Labor, Group B Strep Positive Admission Note: Augmented with Pitocin Procedures: NST, Ultrasound Intrapartum Procedure(s): Spontaneous Vaginal Delivery Complication(s): Laceration-Perineal, Laceration-Labial Laceration-Degree: 1st Hospital Course Hospital Course: routine Results Laboratory Results: WBC 9.2 10^3/uL (4.0-10.5) 07/01/19 05:13 RBC 3.63 10^6/uL (3.72-5.28) L 07/01/19 05:13 Hgb 8.5 g/dL (12.0-15.5) L 07/01/19 05:13 Hct 26.7 % (36.0-47.0) L 07/01/19 05:13 MCV 74 fl (80-97) L 07/01/19 05:13 MCH 23.5 pg (27.0-33.4) L 07/01/19 05:13 MCHC 31.9 g/dL (32.0-36.0) L 07/01/19 05:13 RDW 17.4 % (11.5-14.0) H 07/01/19 05:13 Plt Count 212 10^3/uL (150-450) 07/01/19 05:13 Lymph % (Auto) 28.8 % (13-45) 06/29/19 08:15 Parke % (Auto) 8.1 % (3-13) 06/29/19 08:15 Eos % (Auto) 0.6 % (0-6) 06/29/19 08:15 Baso % (Auto) 0.2 % (0-2) 06/29/19 08:15 Absolute Neuts (auto) 5.0 10^3/uL (1.7-8.2) 06/29/19 08:15 Absolute Lymphs (auto) 2.3 10^3/uL (0.5-4.7) 06/29/19 08:15 Absolute Monos (auto) 0.7 10^3/uL (0.1-1.4) 06/29/19 08:15 Absolute Eos (auto) 0.1 10^3/uL (0.0-0.6) 06/29/19 08:15 Absolute Basos (auto) 0.0 10^3/uL (0.0-0.2) 06/29/19 08:15 Seg Neutrophils % 62.3 % (42-78) 06/29/19 08:15 Urine Color YELLOW 06/29/19 08:00 Urine Appearance CLOUDY 06/29/19 08:00 Urine pH 7.0 (5.0-9.0) 06/29/19 08:00 Ur Specific [place] 1.012 06/29/19 08:00 Urine Protein NEGATIVE mg/dL (NEGATIVE) 06/29/19 08:00 Urine Glucose (UA) NEGATIVE mg/dL (NEGATIVE) 06/29/19 08:00 Urine Ketones NEGATIVE mg/dL (NEGATIVE) 06/29/19 08:00 Urine Blood NEGATIVE (NEGATIVE) 06/29/19 08:00 Urine Nitrite NEGATIVE (NEGATIVE) 06/29/19 08:00 Urine Bilirubin NEGATIVE (NEGATIVE) 06/29/19 08:00 Urine Urobilinogen NEGATIVE mg/dL (<2.0) 06/29/19 08:00 Ur Leukocyte Esterase NEGATIVE (NEGATIVE) 06/29/19 08:00 Urine Ascorbic Acid NEGATIVE (NEGATIVE) 06/29/19 08:00 Urine Opiates Screen NEGATIVE 06/29/19 08:00 Urine Methadone Screen NEGATIVE 06/29/19 08:00 Ur Barbiturates Screen NEGATIVE 06/29/19 08:00 Ur Phencyclidine Scrn NEGATIVE 06/29/19 08:00 Ur Amphetamines Screen NEGATIVE 06/29/19 08:00 U Benzodiazepines Scrn NEGATIVE 06/29/19 08:00 Urine Cocaine Screen NEGATIVE 06/29/19 08:00 U Marijuana (THC) Screen NEGATIVE 06/29/19 08:00 RPR NONREACTIVE (NONREACTIVE) 06/29/19 08:15 Blood Type O POSITIVE 06/29/19 08:15 Antibody Screen NEGATIVE 06/29/19 08:15 Plan Health Concerns: routine Plan of Treatment: routine pp care, bottle feeding Goals: baby home with mother Time Spent: Less than 30 Minutes
[2019-07-01 08:39] VITALS: BP 115/63
[2019-07-01] MEDS: FERROUS SULFATE 325 MG TABLET PO SCH (10:35)
[2019-07-01] MEDS: DOCUSATE SODIUM 100 MG CAPSULE PO SCH (10:35)
[2019-07-01] MEDS: SENNOSIDES/DOCUSATE 8.6-50 MG 1 EACH TABLET PO SCH (10:35)
[2019-07-01] MEDS: FAMOTIDINE 20 MG TABLET PO SCH (10:35)
== END 2019-07-01 15:30 | disposition home or self-care (01) | DRG 807 ==
LOC: LR 07:45 → 2N 23:50
PROVIDERS: ADMIT Obstetrics & Gynecology; ATTEND Obstetrics & Gynecology
PROC: 10E0XZZ Delivery of Products of Conception, External Approach (ICD-10-PCS; principal; 2019-06-29)
PROC: 10907ZC Drainage of Amniotic Fluid, Therapeutic from Products of Conception, Via Natural or Artificial Opening (ICD-10-PCS; 2019-06-29)
PROC: 0HQ9XZZ Repair Perineum Skin, External Approach (ICD-10-PCS; 2019-06-29)
PROC: 3E0234Z Introduction of Serum, Toxoid and Vaccine into Muscle, Percutaneous Approach (ICD-10-PCS; 2019-07-01)
DX: O48.0 Post-term pregnancy (principal); Z37.0 Single live birth; O77.0 Labor and delivery complicated by meconium in amniotic fluid; Z3A.41 41 weeks gestation of pregnancy; O69.1XX0 Labor and delivery complicated by cord around neck, with compression, not applicable or unspecified; O70.0 First degree perineal laceration during delivery; O99.824 Streptococcus B carrier state complicating childbirth; Z23 Encounter for immunization; Z87.891 Personal history of nicotine dependence
CPT/HCPCS: 36415; 80307; 81005; 85025; 85027; 86592; 86850; 86900; 86901; 90707; J2540; J2590; J3010; J3490